=== PATIENT | female | born 1960 | race Two or more races ===

== ENCOUNTER 2022-04-14 16:30 | Emergency (ER) | payer OTHER ==
[~2022-04-14] VITALS: Ht 165.1 cm; Wt 72.6 kg
[2022-04-14] MEDS ORDERED: SYNTHROID100 MCG PO (16:47)
[2022-04-14] MEDS ORDERED: LYRICA150 MG (16:49)
[2022-04-14] MEDS ORDERED: ZITHROMAX500 MG PO (17:48)
== END 2022-04-14 17:55 | disposition home or self-care (01) ==
LOC: ER 16:30
DX: R09.82 Postnasal drip (principal); J30.9 Allergic rhinitis, unspecified; R09.89 Other specified symptoms and signs involving the circulatory and respiratory systems